=== PATIENT | female | born 1965 | race American Indian/Alaskan Native ===

== ENCOUNTER 2017-05-25 07:39 | Outpatient (CLI) | payer BC ==
--- NOTE | 2017-05-25 08:32 | XRay Report ---
RIGHT KNEE: Pain. The bony architecture is intact without evidence of fracture or dislocation. No significant soft tissue abnormality is seen. IMPRESSION: Normal right knee.
--- NOTE | 2017-05-25 09:38 | Mammography Report ---
BILATERAL MAMMOGRAM: FINDINGS: The breast tissue is heterogeneously dense, which could obscure detection of small masses (approximately 50%-75% glandular). No mass, distortion, suspicious calcification, or skin change is seen. CAD was utilized. IMPRESSION: Negative mammogram. There is no mammographic evidence of malignancy. RECOMMENDATION: Follow-up per ACS guidelines. BI-RADS CATEGORY: 1 = Negative ACR BI-RADS MAMMOGRAPHIC CODES: 0 = Needs additional imaging evaluation; 1 = Negative; 2 = Benign; 3 = Probably benign; 4 = Suspicious; 5 = Malignant; 6 = Known biopsy-proven malignancy COMMENT: 1. Dense breast tissue, i.e., adenosis, fibrocystic changes, etc., may obscure an underlying neoplasm. 2. Approximately 10% of cancers are not detected with mammography. 3. A negative mammography report should not delay biopsy if a clinically suspicious mass is present. COMMENT: Patient follow-up letters are generated in [employer].
== END 2017-05-25 07:40 | disposition home or self-care (01) ==
LOC: MAMMO 07:39
PROVIDERS: ATTEND Nurse Practitioner Family
DX: Z12.31 Encounter for screening mammogram for malignant neoplasm of breast (principal); M25.561 Pain in right knee
CPT/HCPCS: 73560; 77063; G0202; 77067

== ENCOUNTER 2017-10-23 14:14 | Outpatient (CLI) | payer BC ==
--- NOTE | 2017-10-23 14:50 | XRay Report ---
ROUTINE CHEST, TWO VIEWS: HISTORY: Cough, asthma. The trachea, heart, mediastinal contour, lung jeong and bony thorax are unremarkable. IMPRESSION: Unremarkable chest x-ray.
== END 2017-10-23 14:15 | disposition home or self-care (01) ==
LOC: XRAY 14:14
PROVIDERS: ATTEND Internal Medicine
DX: J45.991 Cough variant asthma (principal)
CPT/HCPCS: 71046

== ENCOUNTER 2017-10-30 18:07 | Emergency (ER) | payer BC ==
[2017-10-30 18:15] VITALS: BP 127/69
--- NOTE | 2017-10-30 21:28 | Emergency Department Report ---
- General Chief Complaint: Upper Respiratory Infection Stated Complaint: COUGH Time Seen by Provider: 10/30/17 19:55 Source: patient Mode of arrival: Ambulatory Limitations: No Limitations - History of Present Illness Initial Comments: Patient is a 52-year-old female who was present for 1 month with cough. Patient has a history of diabetes of his very controlled with metformin. Patient states that she is has taken a Z-Jose also given to her by her PCP with no improvement. Patient normal chest x-ray last week but states that the patient's cough is actually getting worse. Patient states that there is some clear sputum. She started getting some discomfort in her chest secondary to the cough but there is no pleuritic chest pain. Patient denies any fevers nausea vomiting at this time. - Related Data Previous Rx's Medication Instructions Recorded Last Taken Type ALBUTEROL Inhaler [ProAir HFA 2 puff IH QID PRN #1 inhalation 10/30/17 Unknown Rx Inhaler] Doxycycline [Vibramycin CAP] 100 mg PO Q12HR #14 capsule 10/30/17 Unknown Rx predniSONE [Deltasone] 10 mg PO QDAY #5 tab 10/30/17 Unknown Rx Allergies Allergy/AdvReac Type Severity Reaction Status Date / Time Sulfa (Sulfonamide Allergy Hives Unverified 05/25/17 07:39 Antibiotics) ED Review of Systems ROS: Stated complaint: COUGH Other details as noted in HPI Comment: All other systems reviewed and negative ED Past Medical Hx - Past Medical History Hx Hypertension: Yes - Surgical History Past Surgical History?: No - Social History Smoking Status: Never Smoker Substance Use Type: None - Medications Home Medications: Home Medications Medication Instructions Recorded Confirmed Last Taken Type ALBUTEROL Inhaler [ProAir HFA 2 puff IH QID PRN #1 inhalation 10/30/17 Unknown Rx Inhaler] Doxycycline [Vibramycin CAP] 100 mg PO Q12HR #14 capsule 10/30/17 Unknown Rx predniSONE [Deltasone] 10 mg PO QDAY #5 tab 10/30/17 Unknown Rx ED Physical Exam - General Limitations: No Limitations General appearance: alert, in no apparent distress - Head Head exam: Present: atraumatic, normocephalic - Eye Eye exam: Present: normal appearance - ENT ENT exam: Present: mucous membranes moist - Neck Neck exam: Present: normal inspection - Respiratory Respiratory exam: Present: normal lung sounds bilaterally. Absent: respiratory distress - Cardiovascular Cardiovascular Exam: Present: regular rate, normal rhythm. Absent: systolic murmur, diastolic murmur, rubs, gallop - GI/Abdominal GI/Abdominal exam: Present: soft, normal bowel sounds - Extremities Exam Extremities exam: Present: normal inspection - Back Exam Back exam: Present: normal inspection - Neurological Exam Neurological exam: Present: alert, oriented X3 - Psychiatric Psychiatric exam: Present: normal affect, normal mood - Skin Skin exam: Present: warm, dry, intact, normal color. Absent: rash ED Course Vital Signs 10/30/17 18:10 Temperature 98.6 F Pulse Rate 86 Respiratory 16 Rate Blood Pressure 127/69 O2 Sat by Pulse 100 Oximetry ED Medical Decision Making - Radiology Data Radiology results: report reviewed No acute process - Medical Decision Making Patient is a 52-year-old female who is presenting with cough cold congestion for approximately one month. The patient's chest x-ray shows no infiltrate at this time. Patient be started on doxycycline because of the duration of her cough and symptoms as well as albuterol inhaler low-dose of prednisone. She has been told if symptoms persist beyond this treatment she'll need to see a relay repairer and relay repairer name was given as well. Critical care attestation.: If time is entered above; I have spent that time in minutes in the direct care of this critically ill patient, excluding procedure time. ED Disposition Clinical Impression: Bronchitis Disposition: DC-01 TO HOME OR SELFCARE Is pt being admited?: No Does the pt Need Aspirin: No Condition: Stable Instructions: Acute Bronchitis (ED) Prescriptions: ALBUTEROL Inhaler [ProAir HFA Inhaler] 2 puff IH QID PRN #1 inhalation PRN Reason: Shortness Of Breath Doxycycline [Vibramycin CAP] 100 mg PO Q12HR #14 capsule predniSONE [Deltasone] 10 mg PO QDAY #5 tab Referrals: SARY MAC MD [Primary Care Provider] - 3-5 Days
--- NOTE | 2017-10-30 22:42 | XRay Report ---
FINAL REPORT EXAM: XR CHEST ROUTINE 2V HISTORY: COUGH ONE MONTH WORSE SINCE LASTCXR TECHNIQUE: Two views of the chest were performed Comparison: None FINDINGS: Heart size is normal. There is mild bronchial thickening with a suggestion of mild perihilar infiltrates on the lateral projection. No effusion. IMPRESSION: Mild bronchial thickening and mild perihilar infiltrates. Findings may be related to a viral process. No lobar airspace disease.
== END 2017-10-30 21:35 | disposition home or self-care (01) ==
LOC: ED 18:07
DX: J40 Bronchitis, not specified as acute or chronic (principal); I10 Essential (primary) hypertension; E11.9 Type 2 diabetes mellitus without complications; Z88.2 Allergy status to sulfonamides
CPT/HCPCS: 71046

== ENCOUNTER 2018-01-13 12:18 | Emergency (ER) | payer OTHER, BC ==
[2018-01-13 12:29] VITALS: BP 123/85
[2018-01-13] MEDS ORDERED: MOTRIN PO ONE (13:13)
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
== END 2018-01-13 14:23 | disposition home or self-care (01) ==
LOC: ED 12:18
DX: M79.1 Myalgia (principal); I10 Essential (primary) hypertension; Z88.2 Allergy status to sulfonamides; V49.49XA Driver injured in collision with other motor vehicles in traffic accident, initial encounter; Y93.89 Activity, other specified; Y99.8 Other external cause status; Y92.488 Other paved roadways as the place of occurrence of the external cause
CPT/HCPCS: 71046

== ENCOUNTER 2021-01-30 06:41 | Emergency (ER) | payer BC, OTHER ==
[2021-01-30 07:07] VITALS: BP 139/82
--- NOTE | 2021-01-30 08:05 | Emergency Department Report ---
ED General Adult HPI - General Chief complaint: Pain General Stated complaint: FATIQUE Time Seen by Provider: 01/30/21 07:37 Source: patient Mode of arrival: Ambulatory Limitations: No Limitations - History of Present Illness Initial comments: 55 y/o female pt w/ hx of diabetes and "swelling" (takes diuretic) presents to ED w/ complaints of fatigue and generalized bodyaches for six months, worsening for the last two days. No preceding fall, trauma, or injury. No known sick contacts. No recent travel. No current steroid or antibiotic use. Pt is compli ant with her diabetes medications and her preventative health screenings. States her symptoms have been preventing her from sleeping through the night. Denies fever, chills, chest pain, shortness of breath, palpitations, syncope, anorexia, unintentional weight loss, vomiting, diarrhea. Denies all other complaints at this time. - Related Data Previous Rx's Medication Instructions Recorded Last Taken Type Albuterol Mdi (or & Nicu Only) 2 puff IH QID PRN #1 inhalation 10/30/17 Unknown Rx [ProAir HFA Inhaler] DOXYCYCLINE Hyclate [Vibramycin 100 mg PO Q12HR #14 capsule 10/30/17 Unknown Rx CAP] predniSONE 10 mg PO QDAY #5 tab 10/30/17 Unknown Rx Cyclobenzaprine [Flexeril] 10 mg PO TID PRN #12 tablet 01/13/18 Unknown Rx Ibuprofen [Motrin] 800 mg PO Q8HR PRN #25 tablet 01/13/18 Unknown Rx Allergies Allergy/AdvReac Type Severity Reaction Status Date / Time Sulfa (Sulfonamide Allergy Hives Verified 01/13/18 12:24 Antibiotics) ED Review of Systems ROS: Stated complaint: FATIQUE Other details as noted in HPI Other: GENERAL: positive for fatigue. ENT: Negative for ear pain, difficulty hearing, sore throat, nasal congestion, epistaxis. CARDIOVASCULAR: Negative for chest pain, palpitations, lower extremity swelling. PULMONARY: Negative for cough, dyspnea, wheezing, orthopnea, cyanosis. GASTROINTESTINAL: Negative for abdominal pain, nausea, vomiting, diarrhea, constipation. MUSCULOSKELETAL: Positive for myalgias. NEUROLOGICAL: Negative for headache, seizure, syncope, paresthesias, weakness. INTEGUMENTARY: Negative for erythema, rash, diaphoresis, laceration, ecchymosis. HEMATOLOGICAL: Negative for hemoptysis, hematemesis, hematochezia, hematuria. PSYCHIATRIC: Positive for insomnia. ED Past Medical Hx - Past Medical History Previous Medical History?: Yes Hx Hypertension: Yes Hx Diabetes: Yes - Surgical History Past Surgical History?: Yes Additional Surgical History: Partial hysterectomy 2009 - Social History Smoking Status: Never Smoker Substance Use Type: Alcohol - Medications Home Medications: Home Medications Medication Instructions Recorded Confirmed Last Taken Type Albuterol Mdi (or & Nicu Only) 2 puff IH QID PRN #1 inhalation 10/30/17 Unknown Rx [ProAir HFA Inhaler] DOXYCYCLINE Hyclate [Vibramycin 100 mg PO Q12HR #14 capsule 10/30/17 Unknown Rx CAP] predniSONE 10 mg PO QDAY #5 tab 10/30/17 Unknown Rx Cyclobenzaprine [Flexeril] 10 mg PO TID PRN #12 tablet 01/13/18 Unknown Rx Ibuprofen [Motrin] 800 mg PO Q8HR PRN #25 tablet 01/13/18 Unknown Rx ED Physical Exam - General Limitations: No Limitations - Other Other exam information: General: Awake and alert. No acute distress. Head: Atraumatic, normocephalic. Eyes: EOMI. Pupils are equal and round. Normal sclera and conjunctiva. ENT: Oral mucosa is moist. Normal pharyngeal exam. Neck: Supple. No lymphadenopathy. Pulmonary: No respiratory distress. Clear to auscultation bilaterally. Cardiac: Regular rate and rhythm. Pulses are palpable and equal bilaterally. No lower extremity cyanosis or edema. Skin: Warm and dry. No rashes. Abdomen: Soft, non-tender, non-protuberant. No guarding, rigidity, or rebound. Bowel sounds are normal. No organomegaly or masses noted. Back: Normal alignment. No CVA tenderness. Extremities: Symmetrical. Full range of motion intact. Neurological: Alert and oriented, appropriately interactive, no focal deficits. Psych: Cooperative. Appropriate mood and affect. Speech is evenly metered. Thoughts are logically construed. ED Course Vital Signs 01/30/21 07:03 Temperature 98.7 F Pulse Rate 64 Respiratory 20 Rate Blood Pressure 139/82 O2 Sat by Pulse 99 Oximetry ED Medical Decision Making - Lab Data Result diagrams: 01/30/21 08:11 01/30/21 08:11 - EKG Data 01/30/21 08:45 EKG shows normal sinus rhythm with a ventricular rate of 64 bpm. Normal axis. Normal [place] interval. Normal QT interval. Good R wave progression. No ST segment changes. Over read by attending emergency physician, who agrees with this interpretation. - Radiology Data [facility] [address] [place] [address] XRay Report Signed Patient: ANTON HAYDEN MR#: [id number] : 1965 Acct:[id number] Age/Sex: 55 / F ADM Date: 01/30/21 Loc: ED Attending Dr: Ordering Physician: CAN OSUNA Date of Service: 01/30/21 Procedure(s): XR chest routine 2V Accession Number(s): [id number] cc: CAN OSUNA Fluoro Time In Minutes: CHEST 2 VIEWS INDICATION: fatigue/bodyaches; on diuretic for "swelling". COMPARISON: 01/13/2018 FINDINGS: Support devices: None. Heart: Within normal limits. Lungs: Diffuse interstitial markings are prominent. Pleura: No significant pleural effusion. No pneumothorax. Additional findings: None. IMPRESSION: 1. Mild diffuse interstitial pulmonary edema. Signer Name: Tariq Sousa MD Signed: 01/30/2021 8:32 AM Workstation Name: [id number] Transcribed By: WG Dictated By: Tariq Sousa MD Electronically Authenticated By: Tariq Sousa MD Signed Date/Time: 01/30/21831 DD/ 0 TD/TT: - Medical Decision Making Differential diagnosis including but not limited to: hypothyroidism, dehydration, electrolyte abnormality, hypoglycemia, cardiac arrhythmia, valvular disease, congestive heart failure, anemia On reevaluation, patient remains stable. EKG without acute injury pattern. Labs are unremarkable. Chest x-ray shows mild diffuse interstitial pulmonary edema. BNP is within normal limits. Patient has a history of "swelling" for wh ich she takes Bumex. Currently, she does not have any lower extremity edema. She is afebrile, hemodynamically stable, no hypoxia, no respiratory distress. History and chest x-ray findings warrant further cardiac evaluation however there is no clinical indication for emergent echocardiogram at this time. Patient will be discharged home with referral to cardiology for close outpatient follow-up. She has been provided with a copy of her chest x-ray results and instructed to continue the Bumex as previously prescribed. Patient has been encouraged to eliminate sodium from her diet. Patient expressed understanding and is agreeable to plan of care. Lifestyle modifications discussed. Strict return precautions provided. Repeat exam is unremarkable and benign. History, exam, diagnostic testing, and current condition do not suggest worrisome pathology to warrant further testing, continued ED treatment, admission, or surgical evaluation at this point. Given the low probability of a significant medical illness, it would be more likely to result in harm than benefit to perform further testing at this stage. Discussed findings, presumptive diagnosis, need for follow-up and specific signs/symptoms that should prompt immediate return to the emergency department. Instructions were explained in detail to the patient in addition to giving written discharge information. Patient expressed understanding and was given the opportunity to ask questions, all of which were satisfactorily answered prior to discharge home. Critical care attestation.: If time is entered above; I have spent that time in minutes in the direct care of this critically ill patient, excluding procedure time. ED Disposition Clinical Impression: Fatigue Qualifiers: Fatigue type: unspecified Qualified Code(s): R53.83 - Other fatigue Disposition: DC-01 TO HOME OR SELFCARE Is pt being admited?: No Does the pt Need Aspirin: No Condition: Stable Instructions: Fatigue Additional Instructions: Eliminate sodium from your diet. Drink plenty of fluids. Exercise daily. Maintain a healthy, well-balanced diet. Continue all medications as previously prescribed. Follow-up with cardiology this week. Call tomorrow to schedule an appointment. See referral information below. Bring a copy of today's chest x-ray results with you to your follow-up appointment. Return to the emergency department immediately for new or worsening symptoms. Specifically, return to the emergency department immediately for chest pain, difficulty breathing, palpitations, loss of consciousness, lower extremity swelling, or any other concerns. Referrals: [facility] [Other] - 3-5 Days NGA CEJA MD [Staff Physician] - 3-5 Days [facility] [Provider Group] - 3-5 Days Time of Disposition: 09:31
--- NOTE | 2021-01-30 08:36 | XRay Report ---
CHEST 2 VIEWS INDICATION: fatigue/bodyaches; on diuretic for "swelling". COMPARISON: 01/13/2018 FINDINGS: Support devices: None. Heart: Within normal limits. Lungs: Diffuse interstitial markings are prominent. Pleura: No significant pleural effusion. No pneumothorax. Additional findings: None. IMPRESSION: 1. Mild diffuse interstitial pulmonary edema. Signer Name: Tariq Sousa MD Signed: 01/30/2021 8:32 AM Workstation Name: [id number]
[2021-01-30 08:53] LABS: Alanine Aminotransferase 25 units/L (7-56); Albumin 3.9 g/dL (3.9-5); Blood Urea Nitrogen 13 mg/dL (7-17); Calcium 9.4 mg/dL (8.4-10.2); Hemolysis Index 1
[2021-01-30 08:56] LABS: BUN/Creatinine Ratio 19
[2021-01-30 09:23] LABS: Basophils % (Auto) 0.2 % (0.0-1.8); Eosinophils # (Auto) 0.1 K/mm3 (0.0-0.4); Eosinophils % (Auto) 1.2 % (0.0-4.3); Hematocrit 34.1 % (30.3-42.9); Hemoglobin 11.3 gm/dl (10.1-14.3); Lymphocytes # (Auto) 2.4 K/mm3 (1.2-5.4); Lymphocytes % (Auto) 48.5 % (13.4-35.0); Mean Corpuscular HGB Conc 33 % (30-34); Mean Corpuscular Volume 85 fl (79-97); Monocytes # (Auto) 0.6 K/mm3 (0.0-0.8); Monocytes % (Auto) 10.9 % (0.0-7.3); Platelet Count 213 K/mm3 (140-440); Red Cell Distribution Width 13.5 % (13.2-15.2)
--- NOTE | 2021-02-03 09:40 | Electrocardiograph Report ---
[facility] Test Date: 2021-01-30 Test Time: 08:33:34 Pat Name: ANTON HAYDEN Department: Room: Gender: F Magistrate: NURSE : 1965 Requested By: ULISES MENSAH Order Number: [id number] Reading MD: Mukesh Paiz Measurements Intervals [place] Rate: 64 P: -5 [place]: 158 QRS: 15 QRSD: 90 T: 15 QT: 387 QTc: 399 Interpretive Statements Sinus rhythm No previous ECG available for comparison Electronically Signed On 02-03-2021 9:40:23 EDT by Mukesh Paiz
== END 2021-01-30 09:40 | disposition home or self-care (01) ==
LOC: ED 06:41
DX: R53.83 Other fatigue (principal); I10 Essential (primary) hypertension; E11.9 Type 2 diabetes mellitus without complications; Z79.899 Other long term (current) drug therapy; Z88.2 Allergy status to sulfonamides; Z90.710 Acquired absence of both cervix and uterus
CPT/HCPCS: 36415; 71046; 80053; 82550; 83735; 83880; 84100; 84436; 84443; 84484; 85025; 93005